=== PATIENT | female | born 1980 | race Caucasian/White ===

== ENCOUNTER 2018-09-06 22:02 | Emergency (ER) | payer SELFPAY ==
[2018-09-06 23:07] LABS: Urine Blood TRACE (NEG); Urine Glucose NEGATIVE (NEG); Urine Protein NEGATIVE (NEG); Urine pH 6.5 (5.0-7.0)
[2018-09-06 23:38] LABS: ALT/SGPT 33 U/L (12-78); AST/SGOT 20 U/L (15-37); Albumin 4.1 g/dL (3.4-5.0); Alkaline Phosphatase 65 U/L (45-117); BUN Blood Urea Nitrogen 13 mg/dL (7-18); Bicarbonate 26 mmol/L (21-32); Bilirubin Direct < 0.1 mg/dL (0-0.2); Bilirubin Total 0.3 mg/dL (0.2-1.0); Glucose Level 92 mg/dL (74-106); Lipase 163 U/L (73-393); Potassium 3.6 mmol/L (3.5-5.1); Protein, Total 8.1 g/dL (6.4-8.2); Sodium Level 140 mmol/L (136-145)
--- NOTE | 2018-09-07 01:29 | ER ---
Nurse's Notes [facility] Name: Ly Valdez Age: 37 yrs Sex: Female : 1980 Arrival Date: 09/06/2018 Time: 22:05 Bed 20 Private MD: Diagnosis: Generalized abdominal pain;Enlarged uterus Presentation: 09/06 22:07 Presenting complaint: Patient states: pt had positive test in March she has bb not been to a doctor not sure if she is still , her stomach gets hard and she had pain up into her chest she has gained 32 pounds. Transition of care: patient was not received from another setting of care. Onset of symptoms is unknown. Risk Assessment: Do you want to hurt yourself or someone else? Patient reports no desire to harm self or others. Initial Sepsis Screen: Does the patient meet any 2 criteria? No. Patient's initial sepsis screen is negative. Does the patient have a suspected source of infection? No. Patient's initial sepsis screen is negative. Care prior to arrival: None. 22:07 Method Of Arrival: Ambulatory bb 22:07 Acuity: JAM 3 bb Triage Assessment: 22:22 General: Appears in no apparent distress. Behavior is calm, cooperative. 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 - Social history:: Smoking status: Patient/guardian denies using tobacco, Patient/guardian denies using alcohol, street drugs. - Ebola Screening: : No symptoms or risks identified at this time. Screenin:21 Abuse screen: Denies threats or abuse. Denies injuries from another. Nutritional ak1 screening: No deficits noted. Tuberculosis screening: No symptoms or risk factors identified. Fall Risk None identified. Assessment: 22:49 Reassessment: pt refused IV start, will allow for lab draw only - provider notified. ak1 General: Appears in no apparent distress. Pain: Complains of pain in abdomen. Neuro: No deficits noted. Cardiovascular: No deficits noted. Respiratory: No deficits noted. GI: Bowel sounds present X 4 quads. Abd is soft and non tender X 4 quads. : No signs and/or symptoms were reported regarding the genitourinary system. EENT: No signs and/or symptoms were reported regarding the EENT system. Derm: No signs and/or symptoms reported regarding the dermatologic system. Musculoskeletal: No signs and/or symptoms reported regarding the musculoskeletal system. Vital Signs: 22:11 BP 135 / 83; Pulse 96; Resp 16 S; Temp 98.7(O); Pulse Ox 100% on R/A; Weight 58.11 kg bb (M); Height 5 ft. 0 in. (152.40 cm); Pain 0/10; 23:31 BP 113 / 73; Pulse 92; Resp 16; Temp 98.6(TE); Pulse Ox 98% on R/A; Pain 0/10; ak1 22:11 Body Mass Index 25.02 (58.11 kg, 152.40 cm) bb ED Course: 22:05 Patient arrived in ED. es 22:10 Triage completed. bb 22:11 Arm band placed on Patient placed in an exam room, on a stretcher, on pulse oximetry. bb Family accompanied patient. 22:16 Alyssa Sarabia FNP-C is PHCP. kb 22:16 Pratik Hdez MD is Attending Physician. kb 22:21 Violeta Estrada, RN is Primary Nurse. ak1 22:21 Patient has correct armband on for positive identification. Bed in low position. Call ak1 light in reach. Side rails up X 1. Adult w/ patient. 23:08 Initial lab(s) drawn, by me, sent to lab. lt1 09/07 00:[address] via wheelchair. kw1 00:32 CT Stone Protocol In Process Unspecified. EDMS 00:33 CT completed. Patient tolerated procedure well. Patient moved back from CT. kw1 01:38 No provider procedures requiring assistance completed. Patient did not have IV access ak1 during this emergency room visit. Administered Medications: No medications were administered Outcome: 01:28 Discharge ordered by . kb 01:38 Eloped from patient exam room, Time discovered patient gone: September 07, 2018 at 01:38 ak1 pt left prior to discharge instructions by this nurse and prior to signing discharge paperwork. 01:38 Condition: good 01:39 Patient left the ED. ak1 Signatures: Dispatcher [employer] Alyssa Roe, CLAY SHOP SUPERVISOR-C CLAY SHOP SUPERVISOR-Mendy Vizcarra Brenda RN RN bb Violeta Estrada RN RN ak1 Asuncion Feliciano1 Shayy Chu [facility]
--- NOTE | 2018-09-07 01:29 | EDPHYS ---
Physician Documentation [facility] Name: Ly Valdez Age: 37 yrs Sex: Female : 1980 Arrival Date: 09/06/2018 Time: 22:05 Bed 20 Private MD: ED Physician Pratik Hdez HPI: 09/07 00:55 This 37 yrs old Female presents to ER via Ambulatory with complaints of kb Abdominal Pain, positive preg test. 00:55 The patient presents with abdominal pain that is diffuse, abdominal distention that is kb diffuse. Onset: The symptoms/episode began/occurred 5 month(s) ago. The symptoms do not radiate. Associated signs and symptoms: none. The symptoms are described as intermittent. Modifying factors: The symptoms are alleviated by nothing, the symptoms are aggravated by nothing. Severity of pain: At its worst the pain was moderate in the emergency department the pain has improved. The patient has not experienced similar symptoms in the past. The patient has not recently seen a physician. Pt reports she had a positive test in March and has not seen an OB. States she has had mood changes, sensitivity to smell, intermittent abd pain and distention since then. . 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 - Social history:: Smoking status: Patient/guardian denies using tobacco, Patient/guardian denies using alcohol, street drugs. - Ebola Screening: : No symptoms or risks identified at this time. ROS: 09/07 00:54 Constitutional: Negative for fever, chills, and weight loss, ENT: Negative for injury, kb pain, and discharge, Cardiovascular: Negative for chest pain, palpitations, and edema, Respiratory: Negative for shortness of breath, cough, wheezing, and pleuritic chest pain, Back: Negative for injury and pain, : Negative for injury, bleeding, discharge, and swelling, MS/Extremity: Negative for injury and deformity, Skin: Negative for injury, rash, and discoloration, Neuro: Negative for headache, weakness, numbness, tingling, and seizure. Abdomen/GI: Positive for abdominal pain, abdominal distension. Exam: 00:54 Constitutional: This is a well developed, well nourished patient who is awake, alert, kb and in no acute distress. Head/Face: Normocephalic, atraumatic. ENT: Nares patent. No nasal discharge, no septal abnormalities noted. Tympanic membranes are normal and external auditory canals are clear. Oropharynx with no redness, swelling, or masses, exudates, or evidence of obstruction, uvula midline. Mucous membranes moist. Neck: Trachea midline, no thyromegaly or masses palpated, and no cervical lymphadenopathy. Supple, full range of motion without nuchal rigidity, or vertebral point tenderness. No Meningismus. Chest/axilla: Normal chest wall appearance and motion. Nontender with no deformity. No lesions are appreciated. Cardiovascular: Regular rate and rhythm with a normal S1 and S2. No gallops, murmurs, or rubs. Normal PMI, no JVD. No pulse deficits. Respiratory: Lungs have equal breath sounds bilaterally, clear to auscultation and percussion. No rales, rhonchi or wheezes noted. No increased work of breathing, no retractions or nasal flaring. Abdomen/GI: Soft, non-tender, with normal bowel sounds. No distension or tympany. No guarding or rebound. No evidence of tenderness throughout. Skin: Warm, dry with normal turgor. Normal color with no rashes, no lesions, and no evidence of cellulitis. MS/ Extremity: Pulses equal, no cyanosis. Neurovascular intact. Full, normal range of motion. Neuro: Awake and alert, GCS 15, oriented to person, place, time, and situation. Cranial nerves II-XII grossly intact. Motor strength 5/5 in all extremities. Sensory grossly intact. Cerebellar exam normal. Normal gait. Vital Signs: 09/06 22:11 BP 135 / 83; Pulse 96; Resp 16 S; Temp 98.7(O); Pulse Ox 100% on R/A; Weight 58.11 kg bb (M); Height 5 ft. 0 in. (152.40 cm); Pain 0/10; 23:31 BP 113 / 73; Pulse 92; Resp 16; Temp 98.6(TE); Pulse Ox 98% on R/A; Pain 0/10; ak1 22:11 Body Mass Index 25.02 (58.11 kg, 152.40 cm) bb MDM: 22:16 Patient medically screened. kb 09/07 00:54 Data reviewed: vital signs, nurses notes. Data interpreted: Pulse oximetry: on room air kb is 98 %. Interpretation: normal. 01:27 Counseling: I had a detailed discussion with the patient and/or guardian regarding: the kb historical points, exam findings, and any diagnostic results supporting the discharge/admit diagnosis, lab results, radiology results, the need for outpatient follow up, an OB/Gyne specialist, to return to the emergency department if symptoms worsen or persist or if there are any questions or concerns that arise at home. 09/06 22:35 Order name: Basic Metabolic Panel; Complete Time: 23:41 kb 09/06 22:35 Order name: CBC with Diff; Complete Time: 01:24 kb 09/06 22:35 Order name: Hepatic Function; Complete Time: 23:41 kb 09/06 22:35 Order name: Lipase; Complete Time: 23:41 kb 09/06 22:35 Order name: Test, Serum; Complete Time: 23:54 kb 09/06 22:58 Order name: Urine Dipstick--Ancillary (enter results); Complete Time: 23:11 ag4 09/06 22:15 Order name: Urine Dipstick-Ancillary (obtain specimen); Complete Time: 22:31 kb 09/06 22:15 Order name: Urine Test (obtain specimen); Complete Time: 22:31 kb 09/06 22:35 Order name: Labs collected and sent; Complete Time: 23:12 kb 09/06 22:58 Order name: Urine --Ancillary (enter results); Complete Time: 23:11 ag4 09/06 23:57 Order name: CT Stone Protocol kb Administered Medications: No medications were administered Disposition: 19:26 Co-signature as Attending Physician, Pratik Hdez MD. Disposition: 09/07/18 01:28 Discharged to Home. Impression: Generalized abdominal pain, Enlarged uterus. - Condition is Stable. - Discharge Instructions: Abdominal Pain, Adult, [id number]. - Medication Reconciliation Form, Thank You Letter, Antibiotic Education, Prescription Opioid Use form. - Follow up: Emergency Department; When: As needed; Reason: Worsening of condition. Follow up: Private Physician; When: 2 - 3 days; Reason: Recheck today's complaints, Continuance of care, Re-evaluation by your physician. Signatures: Dispatcher [employer] ED Cornell Alyssa, ADAN VARELAP-Gege Aburto, RN RN bb Violeta Estrada RN RN ak1 Pratik Hdez MD MD gs Corrections: (The following items were deleted from the chart) 09/06 22:49 22:35 IV Saline Lock ordered. kb ak1 09/07 00:54 00:54 Abdomen/GI: Positive for abdominal distension, kb kb 01:39 01:28 09/07/2018 01:28 Discharged to Home. Impression: Generalized abdominal pain; ak1 Enlarged uterus. Condition is Stable. Forms are Medication Reconciliation Form, Thank You Letter, Antibiotic Education, Prescription Opioid Use. Follow up: Emergency Department; When: As needed; Reason: Worsening of condition. Follow up: Private Physician; When: 2 - 3 days; Reason: Recheck today's complaints, Continuance of care, Re-evaluation by your physician. kb
--- NOTE | 2018-09-07 08:25 | RAD REPORT ---
EXAM DESCRIPTION: CT - Stone Protocol - 09/07/2018 3:14 am CLINICAL HISTORY: Flank pain. ABD PAIN COMPARISON: No comparisons TECHNIQUE: Axial images were obtained without oral or IV contrast. Lack of contrast limits solid org an and vascular assessment. The [id number] spans the entirety of the system partially obscuring uppermost abdomen and lung bases. Coronal reformatted images were obtained and reviewed. All CT scans are performed using dose optimization technique as appropriate and may include automated exposure control or mA/KV adjustment according to patient size. FINDINGS: The lower lung hunt are clear. Imaged portions of the liver and spleen show no suspicious findings on non-contrast imaging. The panc reas and adrenal glands are normal. No pathologic lymphadenopathy in the abdomen or pelvis. No urinary tract stones or obstructive uropathy. No bowel obstruction, free air, free fluid or abscess. Appendectomy clips. No significant bony abnormality. IMPRESSION: No urinary tract stones or obstructive uropathy.
== END 2018-09-07 01:39 | disposition home or self-care (01) ==
LOC: ER 22:02
DX: N85.2 Hypertrophy of uterus (principal); Z98.82 Breast implant status
CPT/HCPCS: 36415; 74176; 76377; 80048; 80076; 81003; 81025; 83690; 84703; 85025